=== PATIENT | female | born 2000 | race Two or more races ===

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

== ENCOUNTER 2023-02-08 13:49 | Outpatient (CLI) | payer OTHER | END 2023-02-08 13:56 | disposition home or self-care (01) | LOC: MRI 13:49 | PROVIDERS: ATTEND Pediatrics Neurodevelopmental Disabilities | DX: G23.8 Other specified degenerative diseases of basal ganglia (principal); G04.81 Other encephalitis and encephalomyelitis; F41.9 Anxiety disorder, unspecified | CPT/HCPCS: 70551 ==

== ENCOUNTER 2023-07-14 11:03 | Outpatient (CLI) | payer OTHER | END 2023-07-14 11:09 | disposition home or self-care (01) | LOC: RAD 11:03 | PROVIDERS: ATTEND Physical Medicine & Rehabilitation | DX: M79.642 Pain in left hand (principal) ==

== ENCOUNTER 2024-04-22 17:17 | Emergency (ER) | payer OTHER ==
[~2024-04-22] VITALS: Ht 158.8 cm; Wt 55.8 kg
[2024-04-22 18:00] VITALS: BP 102/57; O2SAT 98
[2024-04-22] MEDS ORDERED: 0.9 % SODIUM CHLORIDE 1,000 ML IV STA ×2 (19:26→19:27)
[2024-04-22] MEDS ORDERED: OSELTAMIVIR PHOSPHATE 75 MG CAPSULE PO ONE (19:30)
[2024-04-22] MEDS ORDERED: FAMOTIDINE/PF 20 MG/2 ML VIAL IV ONE (19:30)
== END 2024-04-22 21:36 | disposition home or self-care (01) ==
LOC: ER 17:19
DX: J11.1 Influenza due to unidentified influenza virus with other respiratory manifestations (principal)